=== PATIENT | female | born 1970 | race Caucasian/White ===

== ENCOUNTER 2017-01-28 21:16 | Emergency (ER) | payer OTHER ==
[2017-01-28 21:33] VITALS: BP 109/77; PULSE 86; TEMP 98.6; BMI 23.3
--- NOTE | 2017-01-28 21:37 | PDOC ---
History of Present Illness - General Chief Complaint: Pain, Acute Stated Complaint: RT CALF PAIN Time Seen by Provider: 01/28/17 21:24 - History of Present Illness Initial Comments: This otherwise healthy 46-year-old woman presents with right calf pain. Patient was playing tennis a few hours prior to presentation when, as her right leg was planted and she attempted to return service, she felt a "pop" in her right calf. After this, she had pain with any dorsiflexion/plantar flexion of her right foot and has been unable to bear weight/ambulate. No previous history of Achilles tendon/knee/ankle issues. She states that she has been sedentary in recent years although she used to be much more active athletically. Patient did not fall and has no other injuries/symptoms. She has not taken any medications since the injury. Past History - Past Medical History Allergies/Adverse Reactions: Allergies Allergy/AdvReac Type Severity Reaction Status Date / Time No Known Allergies Allergy Unverified 01/28/17 21:17 Home Medications: Ambulatory Orders Naproxen Sodium [Aleve] 220 mg PO ONCE 01/28/17 Other medical history: DENIES - Psycho/Social/Smoking Cessation Hx Anxiety: No Suicidal Ideation: No Smoking History: Current every day smoker Number of Cigarettes Smoked Daily: 10 Information on smoking cessation initiated: Yes 'Breaking Loose' booklet given: 01/28/17 Review of Systems - Review of Systems Able to Perform ROS?: Yes Comments:: 12 point review of systems is negative except for what is noted in the history of present illness *Physical Exam - Vital Signs Last Vital Signs Temp Pulse Resp BP Pulse Ox 98.6 F 86 16 109/77 96 01/28/17 21:18 01/28/17 21:18 01/28/17 21:18 01/28/17 21:18 01/28/17 21:18 - Physical Exam Comments: GENERAL: Adult female, alert and oriented 3, in mild distress secondary to right calf pain EXTREMITIES: Right lower extremitymoderate pain on palpation of the gastrocnemius muscle; no deformity/edema/ecchymosis No step offs or tenderness of Achilles tendon No calcaneal/Achilles tendon insertion tenderness or edema Foot/ankle normal without edema/tenderness or deformity Active dorsiflexion/plantar flexion of right foot is present although painful Weathers test of right Achilles tendon is normal Remainder of the extremity exam is normal NEUROLOGICAL: Cranial nerves II through XII grossly intact. Normal speech. No focal neurological deficits. MUSCULOSKELETAL: Back non-tender to palpation, no CVA tenderness SKIN: Warm, Dry, normal turgor, no rashes or lesions noted. Medical Decision Making - Medical Decision Making This 46-year-old woman presents with sudden onset pain/popping sensation in her right calf while playing tennis. No other injury sustained and no other symptoms present. Exam as noted above shows tenderness of the gastrocnemius muscle but no step offs and a normal Weathers test. Clinical presentation most consistent with partial tear of gastrocnemius muscle/ Achilles tendon. Nixon wrap placed on left lower leg Patient will have crutches for ambulation and keep the Nixon wrap on during the day until seen by an orthopedist Patient should elevate and ice the gastrocnemius muscle as much as possible for the next 1-2 days. *DC/Admit/Observation/Transfer Diagnosis at time of Disposition: Right Achilles tendinitis - Discharge Dispostion Disposition: HOME Condition at time of disposition: Stable - Referrals Referrals: Jose Boyd [Primary Care Provider] - Jeremiah Moore MD [Staff Physician] - Call tomorrow - Patient Instructions Printed Discharge Instructions: DI for Achilles Tendinopathy Additional Instructions: Use crutches for ambulation until seen by orthopedist Nixon wrap to right lower leg during the day until seen by orthopedist Elevate/ice to calf for the next 48 hours Call orthopedic group(Dr Moore) tomorrow to arrange follow-up appointment Acetaminophen/naproxen/ibuprofen as needed for pain Return to ER if you have worsening pain or swelling
== END 2017-01-28 22:34 | disposition home or self-care (01) ==
LOC: FER 21:16
DX: M76.61 Achilles tendinitis, right leg (principal); X58.XXXA Exposure to other specified factors, initial encounter; Y93.73 Activity, racquet and hand sports; Y92.9 Unspecified place or not applicable; F17.210 Nicotine dependence, cigarettes, uncomplicated
CPT/HCPCS: 99282-25

== ENCOUNTER 2024-09-05 10:08 | Day surgery (SDC) | payer SELFPAY ==
[2024-08-31 16:22] VITALS: BMI 24.4
[2024-09-05] MEDS ORDERED: POVIDONE-IODINE 5% OPHTHALMIC PREP 30 ML SOLUTION ONE (11:20)
[2024-09-05] MEDS ORDERED: BUPIVACAINE HCL/PF 0.5% (5MG/ML) 10 ML VIAL ONE (11:20)
[2024-09-05] MEDS ORDERED: ceFAZolin SODIUM 1 GM VIAL ONE ×2 (11:20→11:30)
[2024-09-05] MEDS ORDERED: ERYTHROMYCIN 0.5% OPHTHALMIC OINTMENT 3.5 GM TUBE ONE (11:20)
[2024-09-05] MEDS ORDERED: LIDOCAINE 1%/EPI 1:100000 (20 ML MULTI DOSE VIAL) ONE (11:20)
[2024-09-05] MEDS ORDERED: TETRACAINE 0.5% OPHTH SOLN 2 ML BOTTLE ONE (11:20)
[2024-09-05] MEDS ORDERED: PROPOFOL 20 ML ONE (11:30)
[2024-09-05] MEDS ORDERED: MIDAZOLAM HCL 2 MG/2 ML SINGLE DOSE VIAL ONE (11:31)
[2024-09-05] MEDS ORDERED: PROPOFOL 80 ML ONE (12:12)
[2024-09-05] MEDS ORDERED: PROMETHAZINE HCL 25 MG/1 ML VIAL IVPB PRN (13:49)
[2024-09-05] MEDS ORDERED: oxyCODONE HCL 5 MG TABLET PO PRN ×2 (13:49)
[2024-09-05] MEDS ORDERED: FENTANYL CITRATE/PF 50 MCG/ML VIAL ONE ×2 (13:55→14:06)
[2024-09-05] MEDS ORDERED: LACTATED RINGERS SOLUTION 1,000 ML IV SCH (14:00)
[2024-09-05] MEDS: ONDANSETRON 4 MG/2 ML VIAL IVPUSH PRN (14:10)
[2024-09-05] MEDS ORDERED: ACETAMINOPHEN INJECTION 100 ML ONE (14:17)
[2024-09-05] MEDS: ACETAMINOPHEN 1000 MG/100 ML BAG IVPB ONE (14:20)
[2024-09-05 14:59] VITALS: RESP 16
[2024-09-05 15:01] VITALS: TEMP 97.3
[2024-09-05 15:46] VITALS: BP 112/67; PULSE 68
== END 2024-09-05 15:46 | disposition home or self-care (01) ==
LOC: FASU 10:08
PROVIDERS: ATTEND Ophthalmology
PROC: 080N0ZZ Alteration of Right Upper Eyelid, Open Approach (ICD-10-PCS; 2024-09-05)
PROC: 080P0ZZ Alteration of Left Upper Eyelid, Open Approach (ICD-10-PCS; principal; 2024-09-05 12:11)
DX: H02.831 Dermatochalasis of right upper eyelid (principal); H02.834 Dermatochalasis of left upper eyelid; H04.163 Lacrimal gland dislocation, bilateral lacrimal glands; H02.89 Other specified disorders of eyelid
CPT/HCPCS: 94760; J0131